=== PATIENT | male | born 1960 | race Caucasian/White ===

== ENCOUNTER 2025-04-06 07:51 | Outpatient (CLI) | payer MEDICARE, SELFPAY ==
--- OUTSIDE RECORDS SUMMARY | 2025-03-17 03:39 | XMS_ITS | Continuity of Care Document ---
Author Organization [facility] Phone Care Team Providers Care Bessemer Converter Blower Name Role Phone DAGOBERTO GONZALEZ Admitting DAGOBERTO GONZALEZ Primary Attending MAZIN ABURTO Primary Care DAGOBERTO GONZALEZ Unavailable ALLERGIES AND ADVERSE REACTIONS ALLERGIES AND ADVERSE REACTIONS Code System Allergy Substance Adverse Reaction Date Reaction (Severity) Comment Status Reported By Updated By PCN (Free Text Allergy) Adverse reaction to substance does not know active [id number] on March 27, 2021 9:37:31 PM [facility] RESULTS Patient: GAY RAMIREZ Date of : 1960 LABORATORY RESULTS Information is not available LABORATORY NARRATIVE RESULTS Information is not available RADIOLOGY RESULTS ORDER 100: CHEST PA AND LAT (LOINC: 32761-5) ORDER DATE: March 15, 2025 1:42:00 PM [facility] PERFORMING LAB: [address] [id number] Final Result Date: March 15, 2025 2:06:38 PM [address] [place] [id number] Name: JAMES RASHID Exam Date: 03/15/2025 : 1960 Age 64 years Gender: M Physician: DAGOBERTO GONZALEZ Facility: [facility] Facility HSV: Outpatient Exam: CHEST PA & LAT EXAM: CHEST PA & LAT INDICATION: chest pain. TECHNIQUE: 2 views of the chest were submitted. COMPARISON:No prior study was submitted for comparison FINDINGS: The mediastinum and cardiac silhouette are not enlarged. There is no pneumothorax or pleural effusion. There is no pulmonary infiltrate or atelectasis. IMPRESSION: No infiltrate. If clinical concern persists, follow-up may be obtained. Electronically signed by: Delroy Leal MD 03/15/2025 09:13 AM [facility] Dictated By: Delroy Leal Transcribed By: Transcribed On: 03/15/2025 9:06 AM Electronically signed by: Delroy Leal 03/15/2025 Thank you for referring JAMES RASHID to [facility]. Legally authenticated by EVONNE BLACKWELL MD 2025-03-15 09:06:38 PATHOLOGY NARRATIVE RESULTS Information is not available MICROBIOLOGY RESULTS No Micro Labs/Results Exist for Patient BLOOD ADMIN RESULTS Information is not available MEDICATIONS HOME MEDICATIONS Status RXNORM NDC Medication Dose Route Frequency Dates Comments Reported By Updated By Drug Treatment Unknown DISCHARGE MEDICATIONS Status RXNORM NDC Medication Dose Route Frequency Dates Dis pense Data Comments Physician Updated By No Discharge Medication Info rmation Available INPATIENT MEDICATIONS Status RXNORM NDC Medication Dose Route Frequency Rat e Quantity Dates Indication Dispense Data Comments Physician Updated By No Inpatient Medication Info rmation Available SOCIAL HISTORY SOCIAL HISTORY - Smoking Status SNOMED-CT Social History Element Description Effective Dates Offered Cessation Comment Updated By [id number] Historical Tobacco smoking status Never Smoked Yes [id number] on April 16, 2013 2:26:57 PM [facility] SOCIAL HISTORY - Gender Sex: Male SOCIAL HISTORY - Status : status i nformation is not available Intention in Next Year: intention information is not available SOCIAL HISTORY - Assessments Code System Description Status Date Value of Assessment Updated By Comment Assessment Information is no t available SOCIAL HISTORY - Redding Affiliation Redding information is not av ailable SOCIAL HISTORY - Legal Sex Legal Sex information is not available SOCIAL HISTORY - Sexual Behavior Sexual Orientation Gender Identity SNOMED-CT Description SNO MED -CT Description Activity Level No of Partners Partner Type UpdatedBy Information is not available SOCIAL HISTORY - Occupation Occupation information is no t available HEALTH CONCERNS Problems Concern Status Health Concern problem infor mation not available. Smoking Status Status Years Used Consumed packs p er day Health Concern smoking histo ry information not available. Family History Concern Status Health Concern family histor y information not available. ENCOUNTERS ENCOUNTER INFORMATION Reason for Visit CXR PA + LAT Admission March 15, 2025 1:34:00 PM UTC [facility] [address] [facility] [id number] Discharge March 15, 2025 1:34:00 PM UTC DISCHARGED TO HOME OR SELF CARE ENCOUNTER DIAGNOSES Notes information is not millicent ilable. Code System Diagnosis Onset Date Diagnosis information is not available. ABSTRACT DIAGNOSES Code System Diagnosis Updated By Abatement Date R07.9 ICD10 CHEST PAIN, UNSPECIFIED GVI3 742 on March 17, 2025 8:39:26 AM UTC R07.9 ICD10 CHEST PAIN, UNSPECIFIED GVI3 [id number] on March 17, 2025 8:39:27 AM UTC CARE TEAM Care [employer] Converter Blower Role DAGOBERTO GONZALEZ Admitting DAGOBERTO GONZALEZ Primary Attending MAZIN ABURTO Primary Care DAGOBERTO GONZALEZ Referring CARE TEAM CARE geographic information systems engineer Role on Team Location Telecom Status Start Date End Albert e Updated By LAMONTE YEH PCP normal March 15, 2025 5:00:00 AM [facility] March 15, 2025 1:34:00 PM UTC [id number] on March 15, 2025 1:35:39 PM [facility] Referring normal March 15, 2025 5:00:00 AM [facility] March 15, 2025 1:34:00 PM UTC [id number] on March 15, 2025 1:35:39 PM [facility] YE[facility] Attending normal March 15, 2025 5:00:00 AM [facility] March 15, 2025 1:34:00 PM UTC [id number] on March 15, 2025 1:35:39 PM [facility] Admitting normal March 15, 2025 5:00:00 AM [facility] March 15, 2025 1:34:00 PM UTC [id number] on March 15, 2025 1:35:39 PM UTC
--- NOTE | 2025-04-06 | CA_ITS ---
APPROVED REPORT EXAM: Comprehensive 2D, Doppler, and color-flow Echocardiogram Broom Maker: Heather Stephens CRT Ht: 5 ft 10 in Wt: 180lbs BSA: 2.00 BP: 132/78 mmHg Indications: Chest Pain, Hypertension/HDD 2D Dimensions LA Volume 23.20 mL LA Volume Index 11.40 mL/m2 (M/F) 16-34 M-Mode Dimensions RVDd 2.82 cm (0.9-2.6) LA Diam 3.34 cm (1.9-4.0) LVDd 4.26 cm (3.5-5.7) LVDs 2.48 cm (3.5-5.7) IVSd 1.31 cm (0.6-1.1) PWd 0.70 cm (0.6-1.1) EF (Teich) 73.10% FS 41.80% EDV (Teich) 81.30 mL TAPSE 1.69 (<1.7) ESV (Teich) 21.90 mL LV Diastology E Decel Time 250 (160-240 msec) E/A Ratio 0.77 MED A' 11.90 cm/s LAT A' 11.20 cm/s Aortic Valve AO Peak GR. 5.10 mmHg Mitral Valve MV E Max Ronaldo. 61.0 (40-130 cm/s) MV A Velocity 80.0 (40-130 cm/s) E/A Ratio 0.77 MV PHT 73.0 ms Tricuspid Valve TR P. Velocity 200.00 cm/s RAP Estimate 10.00 mmHg RVSP 25.90 mmHg Left Ventricle The left ventricle is normal size. Left ventricular systolic function is normal. The left ventricular ejection fraction is within the normal range. There is increased left ventricular wall thickness. There is normal LV segmental wall motion. The left ventricular diastolic function is normal. LVEF is 55% Right Ventricle The right ventricle is normal size. The right ventricular systolic function is normal. Atria The left atrium size is normal. The right atrium size is normal. There is no color Doppler evidence of interatrial shunt. Aortic Valve The aortic valve is mildly thickened. There is no hemodynamically significant aortic valvular stenosis. No aortic regurgitation is present. Mitral Valve The mitral valve is normal in structure. No evidence of mitral valve stenosis. Mild mitral regurgitation is present. Tricuspid Valve The tricuspid valve leaflets are thin and pliable. Mild tricuspid regurgitation. RVSP is 20-25 mmHg. Pulmonic Valve The pulmonary valve is grossly normal in structure. Trace pulmonic valve regurgitation is present. Great Vessels The aortic root is normal in size. IVC is normal in size and collapses >50% with inspiration. Pericardium There is no pericardial effusion. Other Information Study Quality: Fair Conclusion Normal biventricular systolic function. Mild MR, mild TR. Electronically signed by : Debby Rico MD 04/20/2025 12:54:21
--- OUTSIDE RECORDS SUMMARY | 2025-04-06 08:02 | XMS_ITS | Data Portability ---
Author Organization [facility] - NAYLA Rodriguez [facility] Address [address] [place] [address] Care Team Providers Care Patternator Name Role Phone LAMONTETALHA Primary Care Provider [phone] Assessment Encounter Date Assessment Date Assessment LastModified by Organization Details LastModified Time 03/13/2023 03/13/2023 PSA value has improved. Tamsulosin for medical management of lower urinary symptoms. [email or web address] Not available 03/16/2023 10:58:00 09/18/2023 09/18/2023 Monitor PSA trend monitor. Tamsulosin for medical management of lower urinary symptoms. [email or web address] Not available 09/21/2023 18:15:06 03/25/2024 03/25/2024 Tamsulosin for medical management of lower urinary symptoms. Levofloxacin for treatment of potential prostatitis. Recheck PSA after completion of antibiotic course. [email or web address] Not available 03/27/2024 12:19:03 06/10/2024 06/10/2024 PSA has normalized. Tamsulosin for medical management of lower urinary symptoms. Monitor PSA trend and lower urinary symptoms. Urine for culture. [email or web address] Not available 06/13/2024 11:27:30 12/09/2024 12/09/2024 - 64-year-old male with benign prostatic hyperplasia and stable PSA. - PSA normalized post-antibiotic therapy, stable at 3.39. - Continues tamsulosin, reports nighttime urinary hesitancy. [email or web address] Not available 12/09/2024 13:21:55 Plan of Treatment Reminders Order Date Submit Date Provider Last Modified By Organization Details Last Modified Time Details Appointments RECHECK 2025 01:45P Natalie PAULINO MD Not available Not available Not available Lab urinalysi s panel, auto 2024 025 [email or web address] 4 [facility] With [facility], [address], [place], [address], 12/09/2024 13:20:34 urinalysi s panel, auto 2024 [email or web address] [place] [address] With [facility], [address], [place], [address], 06/13/2024 13:10:08 culture, urine 2024 [email or web address] [place] [address] Laboratory, [address] [place] [address], [address], 06/13/2024 13:10:08 urinalysi s panel, auto 2023 [email or web address] [place] [address] With [facility], [address], [place], [address], 09/21/2023 18:15:08 urinalysi s panel, auto 2022 [email or web address] [place] [address] With [facility], [address], [place], [address], 03/13/2023 15:59:00 Referral None recorded. Procedures None recorded. Surgeries None recorded. Imaging None recorded. Medication Orders tamsulosi n 0.4 mg capsule 2024 025 [facility], [address] [place] [address], [address], 12/09/2024 13:25:56 levofloxa jn 500 mg tablet 2023 025 [facility], [address] [place] [address], [address], 06/10/2024 15:00:26 levofloxa jn 500 mg tablet [email or web address] [place] [address], [address] [place] [address], [address], 06/10/2024 14:53:41 Patient TargetsNo targets recorded. Patient Instructions Encounter Date Encounter Id Patient Instructions Last Modified By Organization Details Last Modified Time 03/13/2023 [id number] learning about healthy weight [email or web address] Not available 03/13/2023 15:58:58 09/18/2023 [id number] learning about healthy weight [email or web address] Not available 09/21/2023 18:15:07 03/25/2024 [id number] learning about healthy weight [email or web address] Not available 03/27/2024 12:19:03 06/10/2024 [id number] learning about healthy weight [email or web address] Not available 06/13/2024 11:27:31 12/09/2024 [id number] learning about healthy weight [email or web address] Not available 12/09/2024 13:20:34 - Continue takin g tamsulosin as prescribed, consider reducing to once daily if symptoms allow. - Monitor urinary symptoms and report any changes. - Return for follow-up in six months to check PSA levels. [email or web address] Not available 12/09/2024 13:21:58 Reason for Referral None Reported. Results Created Date Observation Date Name Description Value Unit Range Abnormal Flag Note LastModifiedBy Organization Detail LastModifiedTime 03/13/2003/13/2023 urina lysis panel , auto Unknown Analyte Clean Catch Not Available [facility] With [address], [place], [address], 03/13/2023 15:45:58 03/13/20 23 03/13/2023 urina lysis panel , auto Unknown Analyte Yellow Not Available [facility] With [address], [place], [address], 03/13/2023 15:45:58 03/13/20 23 03/13/2023 urina lysis panel , auto Unknown Analyte Clear Not Available [facility] With [address], [place], [address], 03/13/2023 15:45:58 03/13/20 23 03/13/2023 urina lysis panel , auto Unknown Analyte 1.020 Not Available [facility] With [address], [place], [address], 03/13/2023 15:45:58 03/13/20 23 03/13/2023 urina lysis panel , auto Unknown Analyte 1.003- 1.035 Not Available [facility] With [address], [place], [address], 03/13/2023 15:45:58 03/13/20 23 03/13/2023 urina lysis panel , auto Unknown Analyte 5.0 Not Available [facility] With [address], [place], [address], 03/13/2023 15:45:58 03/13/20 23 03/13/2023 urina lysis panel , auto Unknown Analyte 5.0-8. 0 Not Available [facility] With [address], [place], [address], 03/13/2023 15:45:58 03/13/20 23 03/13/2023 urina lysis panel , auto Unknown Analyte Negati ve Not Available [facility] With [address], [place], [address], 03/13/2023 15:45:58 03/13/20 23 03/13/2023 urina lysis panel , auto Unknown Analyte Negati ve Not Available [facility] With [address], [place], [address], 03/13/2023 15:45:58 03/13/20 23 03/13/2023 urina lysis panel , auto Unknown Analyte Negati ve Not Available [facility] With [address], [place], [address], 03/13/2023 15:45:58 03/13/20 23 03/13/2023 urina lysis panel , auto Unknown Analyte Negati ve Not Available [facility] With [address], [place], [address], 03/13/2023 15:45:58 03/13/20 23 03/13/2023 urina lysis panel , auto Unknown Analyte Negati ve Not Available [facility] With [address], [place], [address], 03/13/2023 15:45:58 03/13/20 23 03/13/2023 urina lysis panel , auto Unknown Analyte Negati ve Not Available [facility] With [address], [place], [address], 03/13/2023 15:45:58 03/13/20 23 03/13/2023 urina lysis panel , auto Unknown Analyte Normal Not Available [facility] With [address], [place], [address], 03/13/2023 15:45:58 03/13/20 23 03/13/2023 urina lysis panel , auto Unknown Analyte Normal Not Available [facility] With [address] [place], [place], [address], 03/13/2023 15:45:58 03/13/20 23 03/13/2023 urina lysis panel , auto Unknown Analyte 15 mg/dl (Sm) Not Available [facility] With [address], [place], [address], 03/13/2023 15:45:58 03/13/20 23 03/13/2023 urina lysis panel , auto Unknown Analyte Negati ve Not Available [facility] With [address], [place], [address], 03/13/2023 15:45:58 03/13/20 23 03/13/2023 urina lysis panel , auto Unknown Analyte 1 mg/dl Not Available [facility] With [address] [place], [place], [address], 03/13/2023 15:45:58 03/13/20 23 03/13/2023 urina lysis panel , auto Unknown Analyte Normal 1 mg/dl Not Available [facility] With [address], [place], [address], 03/13/2023 15:45:58 03/13/20 23 03/13/2023 urina lysis panel , auto Unknown Analyte 1 mg/dl (+) Not Available [facility] With [address], [place], [address], 03/13/2023 15:45:58 03/13/20 23 03/13/2023 urina lysis panel , auto Unknown Analyte Negati ve Not Available [facility] With [address], [place], [address], 03/13/2023 15:45:58 03/13/20 23 03/13/2023 urina lysis panel , auto Unknown Analyte Negati ve Not Available [facility] With [address], [place], [address], 03/13/2023 15:45:58 03/13/20 23 03/13/2023 urina lysis panel , auto Unknown Analyte Negati ve Not Available [facility] With [facility] [address], [place], [address], 03/13/2023 15:45:58 09/18/19 24 09/18/2023 urina lysis panel , auto Unknown Analyte Clean Catch Not Available [facility] With [address] [place], [place], [address], 09/18/2023 14:31:24 09/18/19 24 09/18/2023 urina lysis panel , auto Unknown Analyte Yellow Not Available [facility] With [address], [place], [address], 09/18/2023 14:31:24 09/18/19 24 09/18/2023 urina lysis panel , auto Unknown Analyte Clear Not Available [facility] With [address] [place], [place], [address], 09/18/2023 14:31:24 09/18/19 24 09/18/2023 urina lysis panel , auto Unknown Analyte 1.030 Not Available [facility] With [address] [place], [place], [address], 09/18/2023 14:31:24 09/18/19 24 09/18/2023 urina lysis panel , auto Unknown Analyte 1.003- 1.035 Not Available [facility] [address], [place], [address], 09/18/2023 14:31:24 09/18/19 24 09/18/2023 urina lysis panel , auto Unknown Analyte 5.0 Not Available [facility] [address] [place] [address], [place], [address], 09/18/2023 14:31:24 09/18/19 24 09/18/2023 urina lysis panel , auto Unknown Analyte 5.0-8. 0 Not Available [facility] With [address], [place], [address], 09/18/2023 14:31:24 09/18/19 24 09/18/2023 urina lysis panel , auto Unknown Analyte Negati ve Not Available [facility] With [address], [place], [address], 09/18/2023 14:31:24 09/18/19 24 09/18/2023 urina lysis panel , auto Unknown Analyte Negati ve Not Available [facility] With [address], [place], [address], 09/18/2023 14:31:24 09/18/19 24 09/18/2023 urina lysis panel , auto Unknown Analyte Negati ve Not Available [facility] With [address], [place], [address], 09/18/2023 14:31:24 09/18/19 24 09/18/2023 urina lysis panel , auto Unknown Analyte Negati ve Not Available [facility] With [address], [place], [address], 09/18/2023 14:31:24 09/18/19 24 09/18/2023 urina lysis panel , auto Unknown Analyte Negati ve Not Available [facility] With [address], [place], [address], 09/18/2023 14:31:24 09/18/19 24 09/18/2023 urina lysis panel , auto Unknown Analyte Negati ve Not Available [facility] With [address], [place], [address], 09/18/2023 14:31:24 09/18/19 24 09/18/2023 urina lysis panel , auto Unknown Analyte Normal Not Available [facility] With [address], [place], [address], 09/18/2023 14:31:24 09/18/19 24 09/18/2023 urina lysis panel , auto Unknown Analyte Normal Not Available [facility] With [address], [place], [address], 09/18/2023 14:31:24 09/18/19 24 09/18/2023 urina lysis panel , auto Unknown Analyte Negati ve Not Available [facility] With [address], [place], [address], 09/18/2023 14:31:24 09/18/19 24 09/18/2023 urina lysis panel , auto Unknown Analyte Negati ve Not Available [facility] With [address], [place], [address], 09/18/2023 14:31:24 09/18/19 24 09/18/2023 urina lysis panel , auto Unknown Analyte 1 mg/dl Not Available [facility] With [address], [place], [address], 09/18/2023 14:31:24 09/18/19 24 09/18/2023 urina lysis panel , auto Unknown Analyte Normal 1 mg/dl Not Available [facility] With [address], [place], [address], 09/18/2023 14:31:24 09/18/19 24 09/18/2023 urina lysis panel , auto Unknown Analyte 1 mg/dl (+) Not Available [facility] With [address], [place], [address], 09/18/2023 14:31:24 09/18/19 24 09/18/2023 urina lysis panel , auto Unknown Analyte Negati ve Not Available [facility] With [address], [place], [address], 09/18/2023 14:31:24 09/18/19 24 09/18/2023 urina lysis panel , auto Unknown Analyte Negati ve Not Available [facility] With [address], [place], [address], 09/18/2023 14:31:24 09/18/19 24 09/18/2023 urina lysis panel , auto Unknown Analyte Negati ve Not Available [facility] With [address], [place], [address], 09/18/2023 14:31:24 06/10/19 25 06/14/2024 URINE CULTU RE urine culture No growth day 3. Not Available [facility] [address] [place] [address], [place], [address], 06/14/2024 11:05:26 06/10/19 25 06/10/2024 urina lysis panel , auto Unknown Analyte Clean Catch Not Available [facility] With [address], [place], [address], 06/10/2024 14:54:32 06/10/19 25 06/10/2024 urina lysis panel , auto Unknown Analyte Yellow Not Available [facility] With [address], [place], [address], 06/10/2024 14:54:32 06/10/19 25 06/10/2024 urina lysis panel , auto Unknown Analyte Clear Not Available [facility] With [address], [place], [address], 06/10/2024 14:54:32 06/10/19 25 06/10/2024 urina lysis panel , auto Unknown Analyte 1.025 Not Available [facility] With [address], [place], [address], 06/10/2024 14:54:32 06/10/19 25 06/10/2024 urina lysis panel , auto Unknown Analyte 1.003- 1.035 Not Available [facility] With [address], [place], [address], 06/10/2024 14:54:32 06/10/19 25 06/10/2024 urina lysis panel , auto Unknown Analyte 6.0 Not Available [address], [place], [address], 06/10/2024 14:54:32 06/10/19 25 06/10/2024 urina lysis panel , auto Unknown Analyte 5.0-8. 0 Not Available [facility] With [address], [place], [address], 06/10/2024 14:54:32 06/10/19 25 06/10/2024 urina lysis panel , auto Unknown Analyte 75 Sunday/ul (+) Not Available [address], [place], [address], 06/10/2024 14:54:32 06/10/19 25 06/10/2024 urina lysis panel , auto Unknown Analyte Negati ve Not Available [address], [place], [address], 06/10/2024 14:54:32 06/10/19 25 06/10/2024 urina lysis panel , auto Unknown Analyte POSITI VE (Abnor mal) Not Available [facility] [address], [place], [address], 06/10/2024 14:54:32 06/10/19 25 06/10/2024 urina lysis panel , auto Unknown Analyte Negati ve Not Available [facility] With [address], [place], [address], 06/10/2024 14:54:32 06/10/19 25 06/10/2024 urina lysis panel , auto Unknown Analyte 30 mg/dl (+) Not Available [facility] With [address], [place], [address], 06/10/2024 14:54:32 06/10/19 25 06/10/2024 urina lysis panel , auto Unknown Analyte Negati ve Not Available [facility] With [address], [place], [address], 06/10/2024 14:54:32 06/10/19 25 06/10/2024 urina lysis panel , auto Unknown Analyte 50 mg/dl Not Available [facility] With [address], [place], [address], 06/10/2024 14:54:32 06/10/19 25 06/10/2024 urina lysis panel , auto Unknown Analyte Normal Not Available [facility] With [address], [place], [address], 06/10/2024 14:54:32 06/10/19 25 06/10/2024 urina lysis panel , auto Unknown Analyte Negati ve Not Available [facility] With [address], [place], [address], 06/10/2024 14:54:32 06/10/19 25 06/10/2024 urina lysis panel , auto Unknown Analyte Negati ve Not Available [facility] With [address], [place], [address], 06/10/2024 14:54:32 06/10/19 25 06/10/2024 urina lysis panel , auto Unknown Analyte Normal Not Available [facility] With [address], [place], [address], 06/10/2024 14:54:32 06/10/19 25 06/10/2024 urina lysis panel , auto Unknown Analyte Normal 1 mg/dl Not Available [facility] With [address], [place], [address], 06/10/2024 14:54:32 06/10/19 25 06/10/2024 urina lysis panel , auto Unknown Analyte Negati ve Not Available [facility] With [address], [place], [address], 06/10/2024 14:54:32 06/10/19 25 06/10/2024 urina lysis panel , auto Unknown Analyte Negati ve Not Available [facility] With [address], [place], [address], 06/10/2024 14:54:32 06/10/19 25 06/10/2024 urina lysis panel , auto Unknown Analyte Trace Not Available [facility] With [address], [place], [address], 06/10/2024 14:54:32 06/10/19 25 06/10/2024 urina lysis panel , auto Unknown Analyte Negati ve Not Available [facility] [address] [place], [place], [address], 06/10/2024 14:54:32 12/10/19 25 12/09/2024 urina lysis panel , auto Unknown Analyte Clean Catch Not Available [facility] With [address], [place], [address], 12/09/2024 13:13:00 12/10/19 25 12/09/2024 urina lysis panel , auto Unknown Analyte Yellow Not Available [facility] With [address], [place], [address], 12/09/2024 13:13:00 12/10/19 25 12/09/2024 urina lysis panel , auto Unknown Analyte Clear Not Available [facility] With [address], [place], [address], 12/09/2024 13:13:00 12/10/19 25 12/09/2024 urina lysis panel , auto Unknown Analyte 1.020 Not Available [facility] With [address], [place], [address], 12/09/2024 13:13:00 12/10/19 25 12/09/2024 urina lysis panel , auto Unknown Analyte 1.003 - 1.030 Not Available [facility] With [address], [place], [address], 12/09/2024 13:13:00 12/10/19 25 12/09/2024 urina lysis panel , auto Unknown Analyte 6.0 Not Available [facility] With [address], [place], [address], 12/09/2024 13:13:00 12/10/19 25 12/09/2024 urina lysis panel , auto Unknown Analyte 5.0 - 8.0 Not Available [facility] [address] [place] [address], [place], [address], 12/09/2024 13:13:00 12/10/19 25 12/09/2024 urina lysis panel , auto Unknown Analyte Negati ve Not Available [facility] With [address], [place], [address], 12/09/2024 13:13:00 12/10/19 25 12/09/2024 urina lysis panel , auto Unknown Analyte Negati ve Not Available [facility] With [address], [place], [address], 12/09/2024 13:13:00 12/10/19 25 12/09/2024 urina lysis panel , auto Unknown Analyte Negati ve Not Available [facility] With [address], [place], [address], 12/09/2024 13:13:00 12/10/19 25 12/09/2024 urina lysis panel , auto Unknown Analyte Negati ve Not Available [facility] With [address], [place], [address], 12/09/2024 13:13:00 12/10/19 25 12/09/2024 urina lysis panel , auto Unknown Analyte Negati ve Not Available [facility] [address], [place], [address], 12/09/2024 13:13:00 12/10/19 25 12/09/2024 urina lysis panel , auto Unknown Analyte Negati ve Not Available [facility] [address] [place], [place], [address], 12/09/2024 13:13:00 12/10/19 25 12/09/2024 urina lysis panel , auto Unknown Analyte Normal Not Available [facility] With [address], [place], [address], 12/09/2024 13:13:00 12/10/19 25 12/09/2024 urina lysis panel , auto Unknown Analyte Normal Not Available [facility] With [address], [place], [address], 12/09/2024 13:13:00 12/10/19 25 12/09/2024 urina lysis panel , auto Unknown Analyte Negati ve Not Available [facility] [address], [place], [address], 12/09/2024 13:13:00 12/10/19 25 12/09/2024 urina lysis panel , auto Unknown Analyte Negati ve Not Available [facility] With [address], [place], [address], 12/09/2024 13:13:00 12/10/19 25 12/09/2024 urina lysis panel , auto Unknown Analyte 1 mg/dL Not Available [facility] With [address], [place], [address], 12/09/2024 13:13:00 12/10/19 25 12/09/2024 urina lysis panel , auto Unknown Analyte Normal Not Available [facility] With [address], [place], [address], 12/09/2024 13:13:00 12/10/19 25 12/09/2024 urina lysis panel , auto Unknown Analyte Negati ve Not Available [facility] With [address], [place], [address], 12/09/2024 13:13:00 12/10/19 25 12/09/2024 urina lysis panel , auto Unknown Analyte Negati ve Not Available [facility] With [address], [place], [address], 12/09/2024 13:13:00 12/10/19 25 12/09/2024 urina lysis panel , auto Unknown Analyte Negati ve Not Available [facility] With [address], [place], [address], 12/09/2024 13:13:00 12/10/19 25 12/09/2024 urina lysis panel , auto Unknown Analyte Negati ve Not Available [facility] With [address], [place], [address], 12/09/2024 13:13:00 Result Notes None recorded. Procedures Surgical History Date Name Laterality Status Provider Name and Address Organization Details Recorded Time 02/10/20 23 Cataract surg w/iol 1 stage completed Murelene Camron [facility] 03/13/2023 15:51:29 01/11/20 23 Cataract surg w/iol 1 stage completed Murelene Camron [facility] 03/13/2023 15:51:55 laser assisted in situ keratomileusis completed Murelene Camron [facility] 04/19/2021 15:02:13 Hernia Repair completed Murelene Camron [facility] 04/19/2021 15:02:19 Back Surgery completed Murelene Camron [facility] 04/19/2021 15:02:30 Tonsillectomy completed Murelene Camron [facility] 04/19/2021 15:02:36 Imaging Results None recorded. Procedure Notes None recorded. Medical Equipment None Reported. Allergies Allergen ID Allergen Name Allergen Category Reaction Reaction Severity Criticality Documentation Date Start Date Code Code System Note Provider Name and Address Organization Details Recorded Time 302664 Product containin g penicilli n (product) medicatio n Not available Not available Not available 04/19/2021 11601 8001 SNOMED Murelene Camron [facility] 14:17:38 240622 sulfameth oxazole / trimethop rim medicatio n Not available Not available Not available 06/10/2024 30966 RxNorm Missy Lyon rnoal [facility] 14:53:30 Medications Name Sig Start Date Stop Date Status Note LastModified by Organization Details LastModified Time CoQ10 10 mg capsule Take by oral route. active Not Available Not Available No t Available atorvastati n 10 mg tablet Take 1 tablet every day by oral route. active Not Available Not Available No t Available tamsulosin 0.4 mg capsule TAKE 2 CAPSULES BY MOUTH EVERY DAY 2024 active Not Available Not Available Not Avai lable Cipro 500 mg tablet Take 1 tablet every 12 hours by oral route for 14 days. 11/28 completed Not Available Not Available Not Available levofloxaci n 500 mg tablet Take 1 tablet every 24 hours by oral route for 21 days. 06/10 completed Not Available Not Available Not Available Zofran 11/06 completed Not Available Not Available Not Available hydrocodone 5 mg-acetamin ophen 300 mg tablet Take 1 tablet every 4 hours by oral route. 11/06 completed Not Available Not Available Not Available Vitals Date Recorded Body height Body mass index (BMI) Body weight Provider Name and Address Organization Details Last Updated DateTime 06/10/2024 177.8 cm 25.8 kg/m2 34339.63 vanessa Louis [facility] 06/10/2024 14:53:16 Date Recorded Body height Body mass index (BMI) Body weight Provider Name and Address Organization Details Last Updated DateTime 09/18/2023 177.8 cm 25.8 kg/m2 61731.63 [facility] 09/18/2023 14:30:39 Date Recorded Body height Body mass index (BMI) Body weight Provider Name and Address Organization Details Last Updated DateTime 12/09/2024 177.8 cm 25.8 kg/m2 00078.63 g Miriamjuanimehreen [facility] 12/09/2024 13:16:09 Date Recorded Body height Body mass index (BMI) Body weight Provider Name and Address Organization Details Last Updated DateTime 03/13/2023 177.8 cm 25.8 kg/m2 13939.63 g [facility] 03/13/2023 15:44:53 Date Recorded Body height Body mass index (BMI) Body weight Provider Name and Address Organization Details Last Updated DateTime 03/25/2024 177.8 cm 25.8 kg/m2 26276.63 g Missy Lyon [facility] 03/25/2024 18:23:58 Social History Question Answer Notes LastModified by [employer] [facility] Details LastModified Time Tobacco Smoking Status Never Smoker Missy Lyon [facility] 04/19/2021 14:19:57 What Was The Date Of Your Most Recent Tobacco Screening? 12/09/2024 Information not available 12/09/2024 What Is Your Relationship Status? Information not available 04/19/2021 Has Tobacco Cessation Counseling Been Provided? No [email or web address] Information not available 11/06/2021 Have You Recently Traveled Abroad? No [email or web address] Information not available 11/06/2021 Sex: Male Functional Status Question Answer Note LastModified by [employer] [facility] Details LastModified Time Do you use any illicit or recreational drugs? No [email or web address] Information not available 11/06/2021 Do you or have you ever used any other forms of tobacco or nicotine? No [email or web address] Information not available 11/06/2021 What is your level of alcohol consumption? None Information not available 04/19/2021 Mental Status None recorded. Family History Relationship Description Onset Age of this Age Resolved Age Notes LastModified by Organization Details LastModified Time Father Kidney disease Not available 2020 14:19:38 Medical History Condition Response Kidney Stones Y High Cholesterol Y Past Encounters Encounter ID Performer Location Encounter Start Date Encounter Closed Date Diagnosis/Indication Diagnosis SNOMED-CT Code Diagnosis ICD10 Code Diagnosis IMO Codes Diagnosis Note [id number] MD [facility] [address] [address] 04/19/2021 13:41:05 04/19/2021 15:30:57 Kidney stone 69514936 N20.0 Benign pro static hyperplasia with outflow obstruction 090253524 N40.1 [id number] MD [facility] [address] [address] 07/19/2021 13:47:06 07/23/2021 12:05:03 Benign prostatic hyperplasia with outflow obstruction 820746586 N40.1 Kidney stone 87704919 N2 0.0 [id number] HORACE PAULINO MD [facility] [address] [place] [address] 11/06/2021 08:49:52 11/06/2021 09:18:40 Benign prostatic hyperplasia with outflow obstruction 606749805 N40.1 Prostate s pecific antigen above reference range 331114551 R97.20 Kidney stone 68702288 N2 0.0 [id number] HORACE PAULINO MD [facility] [address] [place] [address] ,[address] [place] [address] 2021 11:31:35 12/04/2021 13:29:20 Prostate specific antigen above reference range 120266464 R97.20 Benign pro static hyperplasia with outflow obstruction 967510154 N40.1 [id number] HORACE PAULINO MD [facility] [address] [place] [address] 8 03/21/2022 13:20:16 04/10/2022 13:18:45 Prostate specific antigen above reference range 525933927 R97.20 Benign pro static hyperplasia with outflow obstruction 066441616 N40.1 [id number] HORACE PAULINO MD [facility] [address] [place] [address] 8 08/22/2022 15:24:59 08/26/2022 04:04:41 Prostate specific antigen above reference range 236689210 R97.20 Benign pro static hyperplasia with outflow obstruction 499824059 N40.1 [id number] HORACE PAULINO MD [facility] [address] [place] [address] 8 10/03/2022 13:38:38 10/03/2022 16:02:30 Prostate specific antigen above reference range 273782116 R97.20 Benign pro static hyperplasia with outflow obstruction 730897653 N40.1 [id number] HORACE PAULINO MD [facility] [address] [place] [address] 8 03/13/2023 15:43:05 03/13/2023 18:10:56 Prostate specific antigen above reference range 381029317 R97.20 Benign pro static hyperplasia with outflow obstruction 046391985 N40.1 Prostatitis 1076901 N41. 9 [id number] HORACE PAULINO MD [facility] [address] [place] [address] 8 09/18/2023 13:33:31 09/18/2023 16:14:02 Prostate specific antigen above reference range 163324646 R97.20 Benign pro static hyperplasia with outflow obstruction 301747768 N40.1 Prostatitis 3981397 N41. 9 [id number] HORACE PAULINO MD [facility] [address],[place] [address] 8 03/25/2024 13:17:54 03/25/2024 18:39:23 Prostate specific antigen above reference range 662911398 R97.20 Benign pro static hyperplasia with outflow obstruction 006772374 N40.1 [id number] HORACE PAULINO MD [facility] [address] [place] [address] 8 06/10/2024 14:19:12 06/14/2024 04:14:29 Urinary tract infectious disease 97524875 N39.0 Prostate s pecific antigen above reference range 821273485 R97.20 Benign pro static hyperplasia with outflow obstruction 698660983 N40.1 [id number] HORACE PAULINO MD [facility] [address],[place] [address] 8 12/09/2024 13:11:57 12/09/2024 13:38:44 Benign prostatic hyperplasia with outflow obstruction 030607728 N13.8 N40.1 86586166 - Continue tamsulosin , consider reducing to once daily if symptoms allow. - Monitor symptoms and adjust medication as needed. Prostate s pecific antigen above reference range 882395377 R97.20 9021356707 - PSA stable at 3.39, continue monitoring . - Follow-up in six months to reassess PSA levels. Health Concerns Section Related Observation LastModified by Organization Detai ls LastModified Time None Recorded Concern Status LastModified by Organization Details LastModified Time None Recorded Advance Directives Directive None Recorded Payers Insurance Date Sequence Insurance Name Policy Number Policy Nathan Covered Member ID Nathan Member ID Guarantor Name 12/13/2024 1 [place] [id number] 1 Adán Moreno Jeffery [id number] Adán Gil 12/13/2024 1 [place]MEDICARE REPLACEMENT REGIONAL PPO) [id number] Adán Moreno Jeffery [id number] Adán Jeffery 12/13/2024 GENERIC INSURANCE - MOVED-HOLD Adán Mccain Jeffery 12/21/2024 2 [place] Adán Moreno Jeffery [id number] Adán Gil Notes Date Note Type Note Provider Name and Address Organization Details Recorded Time 03/13/2023 text/html 62-year-old male in the office for follow-up of recently raised PSA. He takes a double dose of tamsulosin. PSA trend listed below. No hesitancy. No urgency. Daytime frequency every 3-4 hours. Nocturia 1-2 times. No gross hematuria. No dysuria. He is having difficulty voiding completely. PSAOctober 2022-1.86August 2022-3.97May 2022-2.63April 2022-4.57 HORACE PAULINO MD [address] [place] [address], [phone], [facility] 03/16/2023 10:58:13 09/18/2023 text/html 62-year-old male in the office for follow-up of recently raised PSA. He takes a double dose of tamsulosin. PSA trend listed below. No hesitancy. Daytime frequency every 4-5 hours. Nocturia 1 time. No gross hematuria. No dysuria. PSAMay 2023-3.48October 2022-1.86August 2022-3.97May 2022-2.63April 2022-4.57 HORACE PAULINO MD [address] [place] [address], [phone], [facility] 09/21/2023 18:15:24 03/25/2024 text/html 63-year-old male in the office for follow-up of recently raised PSA. He takes a double dose of tamsulosin. PSA trend listed below. Patient has been taking an antibiotic from his PCP for the last week. Denies dysuria and hematuria, daytime frequency is normal, nocturia 2-3x, rare hesitancy. PSANovember 2023- 11.5May 2023-3.48October 2022-1.86August 2022-3.97May 2022-2.63April 2022-4.57 HORACE PAULINO MD [address] [place] [address], [phone], [facility] 03/27/2024 12:19:16 06/10/2024 text/html 63-year-old male in the office for follow-up of recently raised PSA. PSA has normalized after antibiotic therapy. He takes a double dose of tamsulosin, nocturia 1-2x, occasional hesitancy, denies hematuria, denies dysuria. PSADecember 2023- 3.02November 2023- 11.5, treated w/ABXMay 2023-3.48October 2022-1.86August 2022-3.97May 2022-2.63April 2022-4.57 HORACE PAULINO MD [address] [place] [address], [phone], [facility] 06/13/2024 11:27:44 12/09/2024 text/html The patient is a 64-year-old male presenting with follow-up evaluation of benign prostatic hyperplasia and elevated PSA. History of benign prostatic hyperplasia with lower urinary tract symptoms. PSA was elevated to 11.5 in March 2024, normalized to 3.02 by April 2024 after antibiotic therapy. Continues on double dose tamsulosin. PSA on November 22, 2024, is 3.39. Reports nighttime urinary hesitancy, waking once, with daytime urination every 4 to 5 hours. Denies dysuria or hematuria. Documentation on this patient encounter was supported using voice-enabled Al technology. The patient consented to recording for the purpose of documenting the encounter. Provider reviewed content of the generated note prior to signature. - PSA: 3.39 on November 22, 2024 HORACE PAULINO MD [address] [place] [address], [phone], [place] [facility] 12/12/2024 17:12:07
--- OUTSIDE RECORDS SUMMARY | 2025-04-06 08:02 | XMS_ITS | Clinical Summary ---
[facility] Address [address] [place] [address] Care Team Providers Care Employee Relations Administrator Name Role Phone Edouard Lui MD Primary Care Provider [phone] Social History Tobacco Use Types Packs/Day Years Used Date Smoking Tobacco: Never Assessed Abuse Screen Answer Date Recorded Unsafe at Home or Work/School Not on file Feels Threatened by Someone? Not on file 01/2023 Does Anyone Keep You from Co ntacting Others or Doint Things Outside the Home? Not on file 02/17/2023 Physical Sign of Abuse Present Not on file 1 Housing Stability Answer Date Recorded Current Living Arrangements Not on file 01/2023 Potentially Unsafe Housing Conditions Not on marko e 02/17/2023 Family and Community Support Answer Albert e Recorded Help with Day-to-Day Activities Not on file 02/17/2023 Lonely or Isolated Not on file 02/17/2023 Employment Answer Date Recorded Do you want help finding or keeping work or a eusebio b? Not on file 02/17/2023 Disabilities Answer Date Recorded Concentrating, Remembering, or Making Decisions Difficulty Not on file 02/17/2023 Doing Errands Independently Difficulty Not on fi le 02/17/2023 Education Answer Date Recorded Help with school or training? Not on file Preferred Language Not on file 02/17/2023 Comments Unknown Sex and Gender Information Value Date Recorded Sex Assigned at Not on file Legal Sex Female 9:24 AM EST Gender Identity Not on file Sexual Orientation Not on file Plan of Treatment Health Maintenance Due Date Last Done Comments ANNUAL PHYSICAL 1960 DXA SCAN 1960 HEPATITIS C SCREENING 1959 TDAP/TD VACCINES (1 - Tdap) 11/27/1978 MAMMOGRAM 1999 COLOGUARD 11/27/2004 COLON CANCER SCREENING 5 YEAR SIGMOIDOSCOPY 11/27/2004 COLONOSCOPY 11/27/2004 COLORECTAL CANCER SCREENING 11/27/2004 CT COLONOGRAPHY 11/27/2004 FECAL OCCULT BLOOD TEST 11/27/2004 FIT Testing (1 year) 11/27/2004 Pneumococcal Vaccine 50+ (1 of 1 - PCV) 11/27/2009 ZOSTER VACCINE (1 of 2) 11/27/2009 INFLUENZA VACCINE 12/10/2024 COVID-19 Vaccine (1 - season) 2025 Care Teams Employee Relations Administrator Relationship Specialty Start Date End Date Edouard Lui MD [address] [place] [address] [place] [address] PCP - General 05/08/15
--- OUTSIDE RECORDS SUMMARY | 2025-04-06 08:02 | XMS_ITS | Clinical Summary ---
Author Organization [employer] ([place], [place], [place], [place], [place]) Address [address] [place] [address] Care Team Providers Care Knitting Machine Operator Automatic Name Role Phone Loly Cartagena MD Unavailable [phone] Allergies Active Allergy Reactions Criticality Noted Date Comments Penicillin Other (See Comments) 09/19/2024 Unknown-childhood Sulfamethoxazole-Trime thoprim Itching 09/20/2024 Medications atorvastatin (LIPITOR) 10 MG tablet Take 1 tablet (10 mg total) by mouth nightly. Active tamsulosin (FLOMAX) 0.4 mg cap 24 hr capsule Take by mouth daily. Active Active Problems No known active problems Family History Medical History Relation Name Comments Hyperlipidemia Other Kidney disease Other Relation Name Status Comments Other Social History Tobacco Use Types Packs/Day Years Used Date Smoking Tobacco: Never Smokeless Tobacco: Never Tobacco Cessation:Counseling Given: Not Answered Alcohol Use Standard Drinks/Week Comments Never 0 (1 standard drink = 0.6 oz pur e alcohol) Sex and Gender Information Value Date Recorded Sex Assigned at Not on file Legal Sex Male 1:39 PM CDT Gender Identity Not on file Sexual Orientation Not on file Last Filed Vital Signs Vital Sign Reading Time Taken Comments Blood Pressure 137/85 09/20/2024 9:51 AM EDT Pulse 62 09/20/2024 9:51 AM EDT Temperature - - Respiratory Rate - - Oxygen Saturation - - Inhaled Oxygen Concentration - - Weight 81.6 kg (180 lb) 09/20/2024 9:47 AM EDT Height 177.8 cm (5' 10 ) 09/20/2024 9:47 AM EDT Body Mass Index 25.83 09/20/2024 9:47 AM EDT Plan of Treatment Health Maintenance Due Date Last Done Comments CT Colonography 1959 Colonoscopy 1959 Colorectal Cancer Screening 1959 FOBT/FIT 1959 Fit-DNA (Cologuard) 1959 Sigmoidoscopy 1959 Depression Screening (12+) 1971 HIV Screening 11/27/1974 Hepatitis C Screening 11/27/1977 DTAP/TDAP/TD VACCINES (1 - Tdap) 11/27/1978 Lipid Panel 11/27/1994 Pneumococcal 50+ years (1 of 1 - PCV) 11/27/2009 Shingles Vaccine (Zoster) (1 of 2) 11/27/2009 Falls Risk Screening 05/12/2024 COVID-19 VACCINE (2024- season) 2025 03/13/2021, 08/11/2020, 07/21/2020 Influenza Vaccine (#1) 2025 Tobacco Cessation Counseling and Screening (12+) 09/20/2025 09/20/2024 Respiratory Syncytial Virus (RSV) Adult or (1 - 1-dose 75+ series) 11/27/2034 Insurance BLUE CROSS/BLUE SHIELD Care Teams Knitting Machine Operator Automatic Relationship Specialty Start Date End Date Loly Cartagena MD [address] [place] [address] Consulting Physician Orthopedic Surgery - Hand 09/20/24
--- OUTSIDE RECORDS SUMMARY | 2025-04-06 08:02 | XMS_ITS | Referral Summary ---
Author Organization [employer] ([place], [place], [place], [place], [place]) Address [address] [place] [address] Care Team Providers Care Director Of Consulting Services Name Role Phone Loly Cartagena MD Unavailable [phone] Allergies Active Allergy Reactions Criticality Noted Date Comments Penicillin Other (See Comments) 09/19/2024 Unknown-childhood Sulfamethoxazole-Trime thoprim Itching 09/20/2024 Medications atorvastatin (LIPITOR) 10 MG tablet Take 1 tablet (10 mg total) by mouth nightly. Active tamsulosin (FLOMAX) 0.4 mg cap 24 hr capsule Take by mouth daily. Active Active Problems No known active problems Social History Tobacco Use Types Packs/Day Years [...] 09/20/2024 9:47 AM EDT Plan of Treatment Not on file Insurance BLUE CROSS/BLUE SHIELD Care Teams Director Of Consulting Services Relationship Specialty Start Date End Date Loly Cartagena MD [address] [facility] [address] [place] [address] Consulting Physician Orthopedic Surgery - Hand 09/20/24
== END 2025-04-06 23:59 | disposition home or self-care (01) ==
PROVIDERS: PCP Family Medicine; Referring Provider Family Medicine; Visit Provider Family Medicine
DX: I08.1 Rheumatic disorders of both mitral and tricuspid valves (principal); I10 Essential (primary) hypertension
CPT/HCPCS: 93306